=== PATIENT | male | born 2000 | race Caucasian/White ===

== ENCOUNTER → 2019-12-24 09:46 | Outpatient (CLI) | payer OTHER, SELFPAY ==
[2019-11-06 16:55] VITALS: BMI 24.5
--- NOTE | 2019-12-24 09:55 | US_ITS ---
STUDY: ABDOMINAL ULTRASOUND - RIGHT UPPER QUADRANT REASON FOR VISIT: Male, 19 years old ELEVATED LABS TECHNIQUE: Ultrasound evaluation of the right upper quadrant was performed with real-time and static logan-scale imaging. TECHNICAL QUALITY: Adequate. COMPARISON: None. FINDINGS: Liver: The liver measures 14.4 cm. There is normal echogenicity of the liver. The bile ducts are within normal limits. There is hepatic color flow. The direction of portal flow is hepatopetal. There is no demonstrated mass lesion. Gallbladder: Normal distended gallbladder. The gallbladder wall measures 2.6 mm. There is a negative sonographic Hook''s sign. There is no pericholecystic fluid. There are no gallstones. Common Bile Duct (C.B.D.): The common bile duct measures 1.8 mm. Pancreas: There is nonvisualization of the pancreas due to overlying bowel gas. Right Kidney: Normal size of the right kidney. The right kidney measures 11.6 cm x 5.9 cm x 5.8 cm. Normal renal cortex. The right cortex measures 1.4 cm. There is no demonstrated renal mass or cyst. There is no right hydronephrosis. US/Abdomen Limited IMPRESSION: Normal right upper quadrant ultrasound examination. Electronically Signed: Luis A Sommer, at 8:21 EDT , Service support ,
== END ==
PROVIDERS: PCP Pediatrics
DX: R17 Unspecified jaundice (principal); R74.8 Abnormal levels of other serum enzymes
CPT/HCPCS: 76705

== ENCOUNTER → 2021-09-08 14:03 | Outpatient (CLI) | payer OTHER, SELFPAY ==
[2021-09-08 15:09] LABS: Absolute Lymphocyte Count 3.18 X10^3/uL (0.83-4.51); Absolute Neutrophil Count 1.9 X10^3/uL (2.0-7.7); Basophil# 0.04 X10^3/uL; Basophil% 0.7 % (0-1); Eosinophil# 0.29 X10^3/uL; Eosinophils% 5.1 % (0-5); Hematocrit 45.2 % (40-54); Hemoglobin 15.4 g/dL (13.0-16.5); Lymphocyte # 3.18 X10^3/ul (0.83-4.51); Lymphocyte % 55.4 % (19-41); Mean Corp Hgb Conc 34.1 g/dL (32-36); Mean Corpuscular Hgb 30.9 pg (27.0-32.0); Mean Corpuscular Volume 90.8 fL (80-94); Monocyte# 0.35 X10^3/uL; Monocyte% 6.1 % (0-10); NRBC Flagged by Analyzer 0 % (0-5); Neutrophil # 1.87 X10^3/uL (2.7-7.7); Neutrophil % 32.5 % (47-70); Platelet Count 317 K/mm3 (150-450); RBC Distribution Width CV 12.9 % (11.6-14.6); RBC Distribution Width SD 42.9 fl (35.1-43.9); Red Blood Count 4.98 M/mm3 (4.6-6.2); White Blood Count 5.7 K/mm3 (4.4-11.0)
[2021-09-08 15:41] LABS: ALB/GLOB Ratio 1.1 RATIO (0.9-2.4); AST(SGOT) 15 U/L (15-37); Alanine Aminotransfer ALT/SGPT 17 U/L (16-61); Albumin, Serum 4.2 g/dL (3.2-5.0); Alkaline Phosphatase 69 U/L (45-117); Anion Gap 6 (5-15); BUN 10 mg/dL (7-18); BUN/Creat Ratio 11.7 RATIO (10-20); Calcium,Total 9.1 mg/dL (8.5-10.1); Chloride 104 mmol/L (98-107); Creatinine, Serum 0.85 mg/dL (0.70-1.30); EST Glomerular Filtration Rate 119 mL/min (>60); Est Glom Filt Rate - Afr Amer 144 mL/min (>60); Globulin 3.7 g/dL (2.2-4.2); Glucose 90 mg/dL (74-106); Potassium 3.9 mmol/L (3.5-5.1); Protein, Total 7.9 g/dL (6.4-8.2); Sodium Level 140 mmol/L (136-145)
[2021-09-11 16:08] LABS: Endomysial Antibody IgA Negative (Negative)
[2021-09-11 18:27] LABS: Deamidated Gliadin IgA 6 units (0-19); Deamidated Gliadin IgG 3 units (0-19); Immunoglobulin A 398 mg/dL (90-386); t-Transglutaminase IgA <2 U/mL (0-3)
[2021-09-12 08:09] LABS: Endomysial Antibody IgA Negative (Negative); Immunoglobulin A 402 mg/dL (90-386); Immunoglobulin G 924 mg/dL (603-1613); Immunoglobulin M 112 mg/dL (20-172)
[2021-09-12 08:56] LABS: Immunoglobulin E 56 IU/mL (6-495); t-Transglutaminase IgA <2 U/mL (0-3)
== END ==
PROVIDERS: Visit Provider Internal Medicine Gastroenterology
DX: K20.0 Eosinophilic esophagitis (principal)
CPT/HCPCS: 36415; 80053; 82784; 82785; 83516; 85025; 86255

== ENCOUNTER 2021-12-19 10:58 | Day surgery (SDC) | payer OTHER, SELFPAY ==
[2021-12-19] VITALS (7 sets, daily range): BP systolic 102–119; BP diastolic 64–81; PULSE 62–73; RESP 16; TEMP 36.6–37.3; O2SAT 16–100; BMI 24.2
--- NOTE | 2021-12-19 | GASB_PTH ---
PATIENT: ZAYDA BURGOS LOC: EN U#:[id number] AGE/SX: 21/M ROOM: RE12/19/[address]: Dr. Guru Claros DO : 2000 BED: DIS: 12/19/2021 SPEC #: [id number] RECD: 12/19/21 14:16 STATUS: JODIE KELLEY #: [id number] SOFIA: 12/19/21 00:[address]: Guru Claros DEPT: SURGICAL PATHOLOGY RECD BY: Carlos Brothers ENTERED: 12/20/21 10:10 SP TYPE: Gastric Bx OTHR DR: Chiquita Primary Care Phys Tissues: A - Gastric mucous membrane B - Esophageal mucous membrane Procedures: Surgery Specimen Level IV HEADER OPERATION: EGD ([facility] [place]) with dilation, biopsy PRE-OP DIAGNOSIS: Eosinophilic esophagitis TISSUE SUBMITTED: A ? Gastritis, B ? Random esophagus biopsy MICROSCOPIC DIAGNOSIS A. Gastritis: Mild gastritis. See microscopic description and comment. B. Esophagus, random biopsy: Fragments of squamous epithelium with changes consistent with eosinophilic esophagitis. See comment. SJ:rg 12/21/2021 COMMENT A. Immunohistochemistry for Helicobacter pylori can be performed if clinically indicated. Please notify the Laboratory if it is needed. B. Increased number of eosinophils (>20 per high power field) are noted, consistent with eosinophilic esophagitis. MICROSCOPIC DESCRIPTION Slides are reviewed. A. The specimen shows fragments of gastric mucosa with chronic inflammatory cell infiltrates in the lamina propria consisting of lymphocytes and plasma cells, consistent with mild chronic gastritis. Focal mucosal congestion is also noted. GROSS DESCRIPTION A - Received in fixative is one container labeled with the patient's name and designated gastritis biopsy. The specimen consists of two irregular fragments of light zepeda soft tissue that in aggregate measure 0.8 x 0.3 x 0.1 cm. The specimen is totally submitted in one cassette. B - Received in fixative is one container labeled with the patient's name and designated random esophagus biopsy. The specimen consists of multiple irregular fragments of light zepeda soft tissue that in aggregate measure 1.2 x 0.4 x 0.1 cm. The specimen is totally submitted in one cassette. / ISAEL:kody 12/20/2021 TC: CPT: 41115 x2
[2021-12-19] MEDS: Lactated Ringers 1,000 ML 15 ML IV (11:34)
--- NOTE | 2021-12-19 11:43 | HP.PCM_ITS ---
History and Physical Date of Admission: 12/19/21 21 M who presents to the office today for Last seen 09/08/21 for establishment of care for eosinophilic esophagitis. Diagnosis received from [facility] in 2014 following EGD with biopsy, no dilation. Symptoms last visit included difficulty swallowing and choking with solids, not liquids starting mid-2020. He has difficulty remembering to take pills on a routine basis. Eosinophilic Esophagitis ? CBC, IgE, serum globulin, celiac. Future EGD with dilation. Start protonix 40mg BID. Eosinophils 5.1 H. IgA 402 H. Feels that symptoms have been better since last visit ? swallowing has improved and has had no choking episodes. ROS Const Constitutional: No anorexia, fatigue, fever(s), weight change or sleep problems Eyes Eyes: No change in vision ENT ENT: No abnormal hearing, difficulty swallowing, mouth lesions, tongue swelling or throat swelling Resp Respiratory: No cough or shortness of breath Cardio Cardiology: No chest pain at rest, chest pain with exertion, shortness of breath or dyspnea on exertion Gastro GI: No difficulty swallowing Genitourinary Male: No difficulty urinating or burning urination Musc Musculoskeletal: No joint pain, joint swelling, muscle weakness or decreased muscle mass Skin Skin: No hair loss in leg, yellowing of the eye, itchy eyes, rash, skin ulcer or skin swelling Neuro Neurology: No abnormal hearing, abnormal movements, confusion, unsteady gait/balance or memory loss Psych Psychiatric: No anxiety, No confusion and No memory loss Endo Endocrine: No fatigue or weight change Aller/Imm Allergy/Immunologic: No itchy eyes, throat swelling or tongue swelling Ryley/Lymp Hematologic/Lymphatic: No easy bleeding, easy bruising or enlarged lymph nodes Exam Const General: cooperative and comfortable Nutritional Appearance: average body habitus and well nourished [facility] Head: normal to inspection Ears: hearing grossly normal bilaterally Nose: external nose normal Face and sinus: normal facial exam Mouth: oral mucosae normal Throat: posterior oropharynx normal Eyes General: appearance normal, both eyes and all related structures Neck Neck: normal visual inspection Chest Chest palpation & inspection: normal inspection of the chest and normal palpation of entire chest wall Resp Effort & Inspection: normal respiratory effort Auscultation: Bilateral: Clear to Auscultation Cardio Palpation: normal PMI Rate: regular rate Rhythm: regular rhythm GI Inspection: normal to inspection Auscultation: normal bowel sounds Percussion: normal to percussion Palpation: no hepatosplenomegaly Skin General: no rashes or lesions noted Neuro General: patient alert Extrem General: normal to inspection Psych Affect: normal affect Quality Reporting Tobacco Screening ([facility] 138) Smoking Status: Never smoker Assessment and Plan Assessment and Plan (1) Eosinophilic esophagitis: Status: Acute Plan - Dr. Garvey Friend, DO: He will undergo an upper endoscopy with possible dilation of his upper GI tract. We will also get biopsies of esophagus, stomach in small bowel due to his persistently elevated eosinophil count in the blood. There is also differential diagnosis for eosinophilic gastroenteritis. I have re-examined the patient. There are no clinical changes since date of exam.
--- NOTE | 2021-12-19 12:43 | OP.CCLET_ITS ---
07/11/2022 No Primary Care Physician Re : Upper GI endoscopy procedure for Zac Rosas Dear Care Physician This procedure was performed on Sunday, December 19, 2021. My impressions and recommendations are as follows: Impressions : - Esophageal mucosal changes secondary to eosinophilic esophagitis. Biopsied. Dilated. - Gastritis. Biopsied. - Normal second portion of the duodenum. Biopsied. Recommendations : - Discharge patient to home. - Resume previous diet. - Continue present medications. - Await pathology results. My findings are described in the full procedure note, which is enclosed. If I can be of further assistance, please feel free to contact me at . Sincerely, Guru Claros DO 12/19/2021 12:42:57 PM This report has been signed electronically.
--- NOTE | 2021-12-19 12:43 | OP.EGD_ITS ---
Patient Name: Zac Rosas Procedure Date: 12/19/2021 12:09 PM Date of : 2000 Age: 21 Procedure: Upper GI endoscopy Indications: Dysphagia Providers: Guru Claros DO Medicines: See the Anesthesia note for documentation of the administered medications Patient Profile: This is a 21 year old male. Refer to note in patient chart for documentation of history and physical. Patient has symptoms. He is status post EGD for biopsy within the past five years. Complications: No immediate complications. Procedure: Pre-Anesthesia Assessment: - Prior to the procedure, a History and Physical was performed, and patient medications and allergies were reviewed. The risks and benefits of the procedure and the sedation options and risks were discussed with the patient. All questions were answered and informed consent was obtained. Patient identification and proposed procedure were verified by the physician in the pre-procedure area. Mental Status Examination: alert and oriented. Airway Examination: normal oropharyngeal airway and neck mobility. Respiratory Examination: clear to auscultation. CV Examination: normal. Prophylactic Antibiotics: The patient does not require prophylactic antibiotics. Prior Anticoagulants: The patient has taken no previous anticoagulant or antiplatelet agents. ASA Grade Assessment: II - A patient with mild systemic disease. After reviewing the risks and benefits, the patient was deemed in satisfactory condition to undergo the procedure. The anesthesia plan was to use moderate sedation / analgesia (conscious sedation). Immediately prior to administration of medications, the patient was re-assessed for adequacy to receive sedatives. The heart rate, respiratory rate, oxygen saturations, blood pressure, adequacy of pulmonary ventilation, and response to care were monitored throughout the procedure. The physical status of the patient was re-assessed after the procedure. After obtaining informed consent, the endoscope was passed under direct vision. Throughout the procedure, the patient's blood pressure, pulse, and oxygen saturations were monitored continuously. The gastroscope was introduced through the mouth, and advanced to the second part of duodenum. The upper GI endoscopy was accomplished without difficulty. The patient tolerated the procedure well. Moderate Sedation: Moderate (conscious) sedation was administered by the endoscopy nurse and supervised by the endoscopist. The following parameters were monitored: oxygen saturation, heart rate, blood pressure, and response to care. Total physician intraservice time was 15 minutes. Scope In: 12:22:58 PM Scope Out: 12:31:58 PM Total Procedure Duration Time 0 hours 9 minutes 0 seconds Findings: Mucosal changes including ringed esophagus, feline appearance, longitudinal furrows, small-caliber esophagus, circumferential folds, congestion (edema), crepe paper esophagus, mucosal friability and stenosis were found in the entire esophagus. Esophageal findings were graded using the Eosinophilic Esophagitis Endoscopic Reference Score (EoE-EREFS) as: Edema Grade 1 Present (decreased clarity or absence of vascular markings), Rings Grade 2 Moderate (distinct rings that do not occlude passage of diagnostic 8-10 mm endoscope), Exudates Grade 1 Mild (scattered white lesions involving less than 10 percent of the esophageal surface area), Furrows Grade 1 Present (vertical lines with or without visible depth) and Stricture present (15 mm luminal diameter). Biopsies were taken with a cold forceps for histology. Estimated blood loss was minimal. A guidewire was placed and the scope was withdrawn. Dilation was performed with a Savary dilator with no resistance at 54 Fr. The dilation site was examined following endoscope reinsertion and showed moderate improvement in luminal narrowing. Estimated blood loss was minimal. Localized moderate inflammation characterized by erythema was found in the gastric body. Biopsies were taken with a cold forceps for histology. Verification of patient identification for the specimen was done. Estimated blood loss was minimal. The second portion of the duodenum was normal. Biopsies were taken with a cold forceps for histology. Verification of patient identification for the specimen was done. Estimated blood loss was minimal. Impression: - Esophageal mucosal changes secondary to eosinophilic esophagitis. Biopsied. Dilated. - Gastritis. Biopsied. - Normal second portion of the duodenum. Biopsied. Recommendation: - Discharge patient to home. - Resume previous diet. - Continue present medications. - Await pathology results. Procedure Code(s): --- Professional --- 05453, Esophagogastroduodenoscopy, flexible, transoral; with insertion of guide wire followed by passage of dilator(s) through esophagus over guide wire 05248, 59, Esophagogastroduodenoscopy, flexible, transoral; with biopsy, single or multiple 00544, 59, Moderate sedation services provided by the same physician or other qualified health client care manager performing the diagnostic or therapeutic service that the sedation supports, requiring the presence of an independent trained observer to assist in the monitoring of the patient's level of consciousness and physiological status; initial 15 minutes of intraservice time, patient age 5 years or older CPT copyright 2017 [employer] [employer]. All rights reserved. The codes documented in this report are preliminary and upon electric gas appliances demonstrator review may be revised to meet current compliance requirements. Guru Claros DO 12/19/2021 12:42:57 PM This report has been signed electronically. Number of Addenda: 1 Note Initiated On: 12/19/2021 12:09 PM Addendum Number: 1 Addendum Date: 07/11/2022 6:35:48 AM MAC was used as sedation for this procedure. Guru Claros DO 07/11/2022 6:35:52 AM This report has been signed electronically.
== END 2021-12-19 23:59 | disposition home or self-care (01) ==
LOC: EN 11:02 → AC 11:03
PROVIDERS: Visit Provider Internal Medicine Gastroenterology
PROC: 0DJ08ZZ Inspection of Upper Intestinal Tract, Via Natural or Artificial Opening Endoscopic (ICD-10-PCS; CPT 43235; principal; 2021-12-19 11:55)
DX: K29.70 Gastritis, unspecified, without bleeding (principal); K20.0 Eosinophilic esophagitis; R13.10 Dysphagia, unspecified
CPT/HCPCS: 43248; 43239; 88305; J7120; C1769; J2405